=== PATIENT | female | born 1995 | race Asian ===

== ENCOUNTER 2019-04-03 01:55 | Emergency (ER) | payer OTHER ==
[2019-04-03] MEDS ORDERED: ONDANSETRON HCL 4 MG/2 ML VIAL ONE (02:19)
[2019-04-03] MEDS ORDERED: SODIUM CHLORIDE 0.9% 1000ML 1,000 ML IV ONE ×2 (02:19→04:10)
[2019-04-03 02:33] LABS: BASOPHILS % (AUTO) 0.4 % (0.0-5.0); EOSINOPHILS % (AUTO) 0.3 % (0.0-8.0); HEMATOCRIT 39.1 % (36-48); LYMPHOCYTES % (AUTO) 20.4 % (21.0-51.0); MEAN CORPUSCULAR HEMOGLOBIN 28.6 pg (27.0-33.0); MEAN CORPUSCULAR HGB CONC 33.7 g/dL (32.0-36.0); MEAN CORPUSCULAR VOLUME 84.7 fL (79-99); MONOCYTES % (AUTO) 5.7 % (3.0-13.0); NEUTROPHILS % (AUTO) 73.2 % (40.0-77.0); PLATELET COUNT (AUTO) 323 K/uL (130-400); RED BLOOD CELL COUNT(AUTO) 4.61 MIL/uL (4.00-5.50); WHITE BLOOD COUNT (AUTO) 13.8 K/uL (4.8-10.8)
[2019-04-03 02:56] LABS: APPEARANCE,URINE Clear (CLEAR); BILIRUBIN,URINE Negative (NEGATIVE); COLOR,URINE Yellow (YELLOW); GLUCOSE, URINE (UA) Negative (NEGATIVE); KETONES,URINE Negative (NEGATIVE); LEUKOCYTE ESTERASE ,URINE Moderate (NEGATIVE); NITRATE,URINE Negative (NEGATIVE); OCCULT BLOOD,URINE Trace (NEGATIVE); PROTEIN,URINE Negative (NEGATIVE); UROBILINOGEN,URINE 0.2 mg/dL (0.2-1.0)
[2019-04-03 02:59] LABS: HCG,QUAL RESULT NEGATIVE (NEGATIVE)
[2019-04-03 03:03] LABS: ALBUMIN 3.2 g/dL (3.5-5.0); BILIRUBIN,TOTAL 0.5 mg/dL (0.2-1.0); CREATININE 0.6 mg/dL (0.5-1.5); POTASSIUM 3.6 mmol/L (3.5-5.1); TOTAL PROTEIN, SERUM 6.8 g/dL (6.0-8.3)
[2019-04-03 03:19] LABS: BACTERIA,URINE None Seen /HPF (None Seen); RBC,URINE None Seen /HPF (0-1); SQUAMOUS EPITHELIAL CELL,UR Rare /HPF (0-2)
[2019-04-03] MEDS ORDERED: KETOROLAC TROMETHAMINE 30MG/ML ONE (04:11)
[2019-04-03] MEDS ORDERED: CEFTRIAXONE SODIUM 1 GM ONE (06:21)
[2019-04-03] MEDS ORDERED: LEVOFLOXACIN 500 MG TABLET ONE (06:30)
== END 2019-04-03 06:58 | disposition home or self-care (01) ==
LOC: EDH 01:55
DX: N10 Acute pyelonephritis (principal)
CPT/HCPCS: 36415; 74176; 76705; 80053; 81001; 81025; 82150; 83605; 83690; 85025; 87040 ×2; 87077; 87088; 87186; 87804 ×2; 96361; 96374; 96375; 99285; J0696; J1885; J2405; J7030 ×2